=== PATIENT | female | born 2000 | race Caucasian/White ===

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

== ENCOUNTER 2021-03-31 13:13 | Emergency (ER) | payer BC, OTHER ==
[2021-03-31] MEDS ORDERED: Bacitracin 1 PK ONE (13:39)
[2021-03-31] MEDS ORDERED: Lidocaine 2% 20 ml MDV ONE (13:39)
[2021-03-31] MEDS ORDERED: Cephalexin 250 MG CAP ONE (13:39)
[2021-03-31] MEDS ORDERED: Boostrix 0.5 ML (Tdap) VIAL ONE (13:40)
== END 2021-03-31 14:14 | disposition home or self-care (01) ==
LOC: BURERS 13:13
DX: S61.216A Laceration without foreign body of right little finger without damage to nail, initial encounter (principal); W25.XXXA Contact with sharp glass, initial encounter
CPT/HCPCS: 12002; 90471; 90715

== ENCOUNTER 2021-05-28 15:24 | Emergency (ER) | payer BC ==
[2021-05-29 07:54] LABS: SARS-CoV-2 PCR by NAA DETECTED (NotDetected)
== END 2021-05-28 15:54 | disposition home or self-care (01) ==
LOC: BURERS 15:24
DX: U07.1 COVID-19 (principal)
CPT/HCPCS: 99284; U0003; U0005

== ENCOUNTER 2021-08-27 14:44 | Emergency (ER) | payer BC ==
[2021-08-27] MEDS ORDERED: Dexamethasone 10 MG/ML VIAL ONE (15:42)
== END 2021-08-27 16:15 | disposition home or self-care (01) ==
LOC: BURERS 14:44
DX: J02.9 Acute pharyngitis, unspecified (principal); H66.91 Otitis media, unspecified, right ear; F17.200 Nicotine dependence, unspecified, uncomplicated
CPT/HCPCS: 87081; 87430; 99283; J1100

== ENCOUNTER 2022-05-25 19:14 | Emergency (ER) | payer BC ==
[2022-05-25] MEDS ORDERED: Iopamidol 370 76% 100 ML VIAL FS ONE (19:15)
[2022-05-25 19:58] LABS: #Basophils 0.1 thou/uL (0.0-0.2); #Eosinphils 0.2 thou/uL (0.0-0.7); #Lymphocytes 2.3 thou/uL (1.20-3.40); #Monocytes 0.9 thou/uL (0.11-0.59); #Neutrophils 5.6 thou/uL (1.40-6.50); %Basophils 1.1 % (0.0-1.0); %Eosinophils 1.9 % (0.0-10.0); %Lymphocytes 25.5 % (28.0-48.0); %Monocytes 9.5 % (0.0-4.0); %Neutrophils 62.1 % (31.0-61.0); Hemoglobin 13.7 g/dL (12.0-16.0); Mean Corpuscular HGB CONC 35.3 g/dL (32.0-36.0); Mean Corpuscular Hemoglobin 30.5 pg (25.0-35.0); Mean Corpuscular Volume 86.5 fL (78.0-98.0); Mean Platelet Volume 10.2 fL (7.4-10.4); Platelet Count 194 thou/uL (130-400); RBC Distribution Width 11.7 % (11.5-14.5)
[2022-05-25 20:11] LABS: Bilirubin Negative (Negative); Blood, Urine Negative (Negative); Clarity Clear (Clear); Glucose, Urine (Dipstick) Negative (Negative); Ketone, Urine Trace mg/dL (Negative); Leukocyte Trace (Negative); Nitrite Negative (Negative); Protein, Urine (Dipstick) Negative (Neg-Trace); Specific Gravity, Urine 1.025 (1.005-1.030)
[2022-05-25 20:12] LABS: ALT (SGPT) 15 U/L (8-55); AST (SGOT) 16 U/L (5-34); Albumin 4.5 g/dL (3.5-5.0); Alkaline Phosphatase 46 U/L (40-100); Anion Gap 15 mmol/L (10-20); BUN (Urea Nitrogen) 15 mg/dL (7.0-18.7); Bilirubin, Total 0.3 mg/dL (0.2-1.2); Calc. Creatinine Clearance 0 mL/min (70-130); Calcium 9.2 mg/dL (7.8-10.44); Carbon Dioxide 23 mmol/L (22-29); Chloride 106 mmol/L (98-107); Estimated GFR 76; Globulin 2.5 g/dL (2.4-3.5); Glucose 91 mg/dL (70-105); Potassium 3.7 mmol/L (3.5-5.1); Sodium 140 mmol/L (136-145)
[2022-05-25 20:12] LABS: Pregnancy Test - Urine (BHCG) Negative (Negative); Pregu Control Background? CLEAR/WHITE (CLR/WHITE); Pregu Control Bar Appear? YES (CONTROL BAR)
[2022-05-25 20:14] LABS: RBC/HPF 0-3 HPF (0-3); WBC/HPF 0-3 HPF (0-3)
[2022-05-25 20:15] LABS: Bacteria/HPF Rare-Few HPF (None Seen); Specific Gravity 1.025 (1.002-1.036); Squamous Epithelial 0-3 HPF (0-3)
[2022-05-25] MEDS ORDERED: Ondansetron PF 4 MG/2 ML Vial ONE (20:34)
[2022-05-25] MEDS ORDERED: Morphine 2 MG/ML VIAL ONE (20:34)
== END 2022-05-25 21:45 | disposition home or self-care (01) ==
LOC: BURERS 19:14
DX: R10.30 Lower abdominal pain, unspecified (principal)
CPT/HCPCS: 74177; 80053; 81003; 81015; 81025; 85025; 96374; 96375; J2270; J2405; Q9967

== ENCOUNTER 2024-08-06 17:33 | Emergency (ER) | payer BC | END 2024-08-06 18:14 | disposition home or self-care (01) | LOC: BURERS 17:33 | DX: J06.9 Acute upper respiratory infection, unspecified (principal) | CPT/HCPCS: 99283 ==

== ENCOUNTER 2024-09-17 12:12 | Emergency (ER) | payer BC ==
[2024-09-17 12:52] LABS: Bilirubin Negative (Negative); Blood, Urine Negative (Negative); Clarity Clear (Clear); Glucose, Urine (Dipstick) Negative (Negative); Ketone, Urine Negative (Negative); Leukocyte Trace (Negative); Nitrite Negative (Negative); Protein, Urine (Dipstick) Negative (Neg-Trace); Urobilinogen 0.2 mg/dL (Less than 2)
[2024-09-17 13:04] LABS: Bacteria/HPF None Seen HPF (None Seen); CAUTI Indications for Culture Dysuria,urgency,freq; RBC/HPF None Seen HPF (0-3); Squamous Epithelial 0-3 HPF (0-3); WBC/HPF 0-3 HPF (0-3)
[2024-09-17 13:06] LABS: Urine Culture Reflex No No
[2024-09-17] MEDS ORDERED: Ondansetron ODT 4 MG TAB ONE (13:12)
== END 2024-09-17 13:18 | disposition home or self-care (01) ==
LOC: BURERS 12:12
DX: A08.4 Viral intestinal infection, unspecified (principal); B34.9 Viral infection, unspecified
CPT/HCPCS: 81001; 87081; 87428; 87430; 99283; Q0162